=== PATIENT | female | born 1990 | race Hispanic/Latino ===

== ENCOUNTER 2017-09-10 02:23 | Emergency (ER) | payer MEDICARE ==
[~2017-09-10] VITALS: Ht 154.9 cm; Wt 80.3 kg
[2017-09-10] MEDS: CEFTRIAXONE SOD 1 GM VIAL IM ONE (02:54)
[2017-09-10] MEDS ORDERED: CEFTRIAXONE SOD 1 GM VIAL ONE (02:57)
== END 2017-09-10 03:46 | disposition home or self-care (01) ==
LOC: ER 02:23
DX: O26.893 Other specified pregnancy related conditions, third trimester (principal); H66.001 Acute suppurative otitis media without spontaneous rupture of ear drum, right ear; H60.591 Other noninfective acute otitis externa, right ear; Z3A.35 35 weeks gestation of pregnancy
CPT/HCPCS: 99282; J0696